=== PATIENT | male | born 1995 | race African-American/Black ===

== ENCOUNTER 2016-12-16 08:13 | Emergency (ER) | payer OTHER ==
[~2016-12-16] VITALS: Ht 175.3 cm; Wt 72.7 kg
[2016-12-16 08:18] VITALS: BP 130/74
== END 2016-12-16 10:36 | disposition home or self-care (01) ==
LOC: ED 08:13
DX: S80.01XA Contusion of right knee, initial encounter (principal); J45.909 Unspecified asthma, uncomplicated; V29.9XXA Motorcycle rider (driver) (passenger) injured in unspecified traffic accident, initial encounter; Y93.89 Activity, other specified; Y92.411 Interstate highway as the place of occurrence of the external cause; Y99.8 Other external cause status
CPT/HCPCS: 90715; J0690; J1885; Q0092

== ENCOUNTER 2017-08-14 10:14 | Emergency (ER) | payer OTHER ==
[~2017-08-14] VITALS: Ht 175.3 cm; Wt 69.9 kg
[2017-08-14 10:24] VITALS: Ht 175.3 cm; Wt 69.9 kg
[2017-08-14 11:55] VITALS: BP 129/62
== END 2017-08-14 11:55 | disposition home or self-care (01) ==
LOC: ED 10:14
DX: S43.401A Unspecified sprain of right shoulder joint, initial encounter (principal); S20.212A Contusion of left front wall of thorax, initial encounter; J45.909 Unspecified asthma, uncomplicated; Z91.010 Allergy to peanuts; V29.9XXA Motorcycle rider (driver) (passenger) injured in unspecified traffic accident, initial encounter; Y93.55 Activity, bike riding; Y99.8 Other external cause status; Y92.89 Other specified places as the place of occurrence of the external cause

== ENCOUNTER 2017-11-30 16:25 | Emergency (ER) | payer OTHER ==
[~2017-11-30] VITALS: Ht 175.3 cm; Wt 72.6 kg
[2017-11-30 16:32] VITALS: BP 113/65; Ht 175.3 cm; Wt 72.6 kg
== END 2017-11-30 19:08 | disposition home or self-care (01) ==
LOC: ED 16:25
DX: S61.011A Laceration without foreign body of right thumb without damage to nail, initial encounter (principal); J45.909 Unspecified asthma, uncomplicated; Z91.010 Allergy to peanuts; W22.8XXA Striking against or struck by other objects, initial encounter; Y93.89 Activity, other specified; Y92.89 Other specified places as the place of occurrence of the external cause; Y99.8 Other external cause status
CPT/HCPCS: J2001; Q0092

== ENCOUNTER 2018-03-24 07:34 | Emergency (ER) | payer SELFPAY ==
[~2018-03-24] VITALS: Ht 172.7 cm; Wt 70.8 kg
[2018-03-24 07:41] VITALS: BP 129/87; Ht 172.7 cm; Wt 70.8 kg
== END 2018-03-24 08:55 | disposition home or self-care (01) ==
LOC: ED 07:34
DX: S61.214A Laceration without foreign body of right ring finger without damage to nail, initial encounter (principal); S61.210A Laceration without foreign body of right index finger without damage to nail, initial encounter; F17.210 Nicotine dependence, cigarettes, uncomplicated; J45.909 Unspecified asthma, uncomplicated; Z91.010 Allergy to peanuts; Z71.6 Tobacco abuse counseling; V29.9XXA Motorcycle rider (driver) (passenger) injured in unspecified traffic accident, initial encounter; Y93.55 Activity, bike riding; Y92.488 Other paved roadways as the place of occurrence of the external cause; Y99.8 Other external cause status
CPT/HCPCS: 99406

== ENCOUNTER 2020-04-30 22:39 | Emergency (ER) | payer OTHER ==
[~2020-04-30] VITALS: Ht 172.7 cm; Wt 74.8 kg
[2020-04-30 22:42] VITALS: Ht 172.7 cm; Wt 74.8 kg
[2020-04-30 23:46] VITALS: BP 108/68
== END 2020-04-30 23:46 | disposition home or self-care (01) ==
LOC: ED 22:39
DX: L02.412 Cutaneous abscess of left axilla (principal); J45.909 Unspecified asthma, uncomplicated; Z91.010 Allergy to peanuts
CPT/HCPCS: J2001